=== PATIENT | male | born 1965 | race Caucasian/White ===

== ENCOUNTER → 2017-09-11 | Outpatient (CLI) | payer BC ==
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
== END | disposition home or self-care (01) ==
LOC: RADMRIMAIN 19:03
PROVIDERS: ATTEND Physical Medicine & Rehabilitation
DX: M48.02 Spinal stenosis, cervical region (principal); M50.221 Other cervical disc displacement at C4-C5 level; M50.31 Other cervical disc degeneration, high cervical region; G95.20 Unspecified cord compression; M46.82 Other specified inflammatory spondylopathies, cervical region
CPT/HCPCS: 72141

== ENCOUNTER → 2018-07-27 | Outpatient (CLI) | payer BC ==
--- NOTE | 2018-07-27 16:04 | MR ---
EXAMINATION TYPE: MR lumbar spine wo/w con DATE OF EXAM: 07/27/2018 COMPARISON: 05/08/2013 HISTORY: Low back pain / Muscle spasm TECHNIQUE: Multiplanar, multisequence images of the lumbar spine were acquired utilizing 13 mL intravenous Gadav ist gadolinium contrast. FINDINGS: There is a new suspicious T1 hypointense approximately 1.8 cm lesion at the inferior labor operator ior margin of the L2 vertebral body that is minimally T2 hyperintense and demonstrates enhancement on postcontrast imaging. This was not present on the prior 2012. Peripherally T2 hyperintense and T1 hy perintense lesion of the inferior endplate of L5 is attributable to discogenic change. There is grade 1 anterolisthesis of L5 on S1, unchanged from the prior with disc uncovering. L1-L2: Normal disc appearance without desiccation. No herniation, protrusion or disc bulging. No ca nal stenosis is present. Foramina are patent bilaterally. L2-L3: There is a new broad-based disc bulge that is left eccentric creating moderate bilateral neura l foraminal narrowing without spinal canal stenosis. Mild facet arthropathy and ligamentum flavum buc kody are also seen at this level. L3-L4: There is a new broad-based disc bulge resulting in moderate right and mild to moderate left ne ural foraminal narrowing in combination with facet arthropathy and ligamentum flavum buckling. No sig nificant spinal canal stenosis. L4-L5: There is disc uncovering from the anterolisthesis, similar to the prior. There is also a broad -based disc bulge, facet arthropathy and ligamentum flavum buckling creating minimal bilateral neural foraminal narrowing. L5-S1: The previously seen subligamentous left paracentral disc herniation is less prominent than on the prior. Again the left S1 nerve root is asymmetrically enlarged in comparison to the right likely due to a perineural cyst as this is T2 hyperintense. There is a broad-based disc bulge, disc degenera tive change of the inferior endplate of L5, intervertebral disc space height loss, hemilaminectomy de fect on the left, and facet arthropathy resulting in mild bilateral neural foraminal narrowing withou t spinal canal stenosis. There is abnormal enhancement surrounding the left S1 nerve root. IMPRESSION: 1. Suspicious osseous lesion of the L2 vertebral body that is concerning for metastasis. Correlate wi th PSA. . Bone scan could also be utilized for further evaluation or 2. Stable grade 1 anterolisthesis of L5 on S1, unchanged from 2013, likely on a degenerative basis. 3. The previously seen left paracentral subligamentous disc herniation at L5-S1 is less prominent delfina n on the prior. However there does appear to be a small degree of enhancing epidural fibrosis surroun ding the left S1 nerve root. 4. Progression of moderate degenerative disc disease in comparison to the prior as described above. IMPRESSIONS- 1. There appears to be a moderate to large disc herniation to the left paracentral canal on the left aspect of the thecal sac at the L5-S1 level. This may be a sequestered disc and has comp ression and displacement on the exiting left S1 nerve root. Correlate with patient's symptoms. 2. Mil d disc bulging L4-L5 with anterior thecal sac contact. Facet hypertrophy is also present at this leve l without stenosis the thecal sac compression.
== END | disposition home or self-care (01) ==
LOC: RADMRIMAIN 10:41
PROVIDERS: ATTEND Physical Medicine & Rehabilitation
DX: M51.26 Other intervertebral disc displacement, lumbar region (principal); M46.86 Other specified inflammatory spondylopathies, lumbar region; M48.02 Spinal stenosis, cervical region; M50.121 Cervical disc disorder at C4-C5 level with radiculopathy; M50.221 Other cervical disc displacement at C4-C5 level; M47.812 Spondylosis without myelopathy or radiculopathy, cervical region; M62.830 Muscle spasm of back; M70.61 Trochanteric bursitis, right hip; Z98.890 Other specified postprocedural states
CPT/HCPCS: 72158; A9585

== ENCOUNTER → 2018-08-03 | Outpatient (CLI) | payer BC ==
[2018-08-03 15:16] LABS: Basophils % (A) 1 %; Eosinophils # (A) 0.3 k/uL (0-0.7); Eosinophils % (A) 4 %; HGB 15.8 gm/dL (13.0-17.5); Lymphocytes # (A) 1.1 k/uL (1.0-4.8); Lymphocytes % (A) 13 %; MCH 29.3 pg (25.0-35.0); MCV 94.6 fL (80.0-100.0); Mean Platelet Volume 7.1; Monocytes # (A) 0.6 k/uL (0-1.0); Monocytes % (A) 7 %; Neutrophils % (A) 74 %; Platelet Count 232 k/uL (150-450); RBC 5.39 m/uL (4.30-5.90); WBC 8.1 k/uL (3.8-10.6)
[2018-08-03 18:51] LABS: Protein, Total 6.2 g/dL (6.2-8.2)
== END ==
LOC: LABWHC1 14:51
PROVIDERS: ATTEND Physical Medicine & Rehabilitation
DX: M54.2 Cervicalgia (principal); M48.02 Spinal stenosis, cervical region; M50.121 Cervical disc disorder at C4-C5 level with radiculopathy; M50.122 Cervical disc disorder at C5-C6 level with radiculopathy; M50.222 Other cervical disc displacement at C5-C6 level; M50.221 Other cervical disc displacement at C4-C5 level; M47.22 Other spondylosis with radiculopathy, cervical region; M47.26 Other spondylosis with radiculopathy, lumbar region; M54.5 Low back pain; M62.830 Muscle spasm of back; M70.61 Trochanteric bursitis, right hip; Z68.37 Body mass index [BMI] 37.0-37.9, adult
CPT/HCPCS: 36415; 84153; 84165; 85025

== ENCOUNTER → 2018-08-08 | Outpatient (CLI) | payer BC ==
--- NOTE | 2018-08-08 15:19 | NM ---
EXAMINATION TYPE: NM bone scan whole body DATE OF EXAM: 08/08/2018 COMPARISON: 12/18/2012 HISTORY: Pain Delayed whole-body scanning was performed following the injection of 23.9 mCi Tc 99m MDP. Images acq uired 3 hours post injection. FINDINGS: Abnormal uptake involving the shoulders feet are most typical of arthritic changes or remote trauma. Abnormal uptake involving the lower lumbar spine and mid thoracic spine suggestive of degenerative di sc disease. Abnormal uptake involving the mandible suggestive of periodontal disease. Deformity involving the rig ht shoulder suggestive of history of previous fracture and surgery Abnormal uptake involving the mandible suggesting periodontal disease. Abnormal uptake involving the mid cervical spine likely degenerative but nonspecific. IMPRESSION- 1. Abnormal uptake involving the vertebral column most typical of degenerative change. 2. Abnormal uptake involving the shoulders typical arthritic change. Postsurgical change suggested in volving the right shoulder. .
== END | disposition home or self-care (01) ==
LOC: RADNMMAIN 10:04
PROVIDERS: ATTEND Physical Medicine & Rehabilitation
DX: R94.8 Abnormal results of function studies of other organs and systems (principal)
CPT/HCPCS: 78306; A9503

== ENCOUNTER → 2019-03-01 | Outpatient (CLI) | payer BC ==
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
== END | disposition home or self-care (01) ==
LOC: RADMRIMAIN 17:10
DX: M48.02 Spinal stenosis, cervical region (principal); M50.30 Other cervical disc degeneration, unspecified cervical region
CPT/HCPCS: 72141

== ENCOUNTER → 2019-07-05 | Outpatient (CLI) | payer BC ==
--- NOTE | 2019-07-06 01:48 | MR ---
EXAMINATION TYPE: MR angio head wo con DATE OF EXAM: 07/05/2019 COMPARISON: None HISTORY: Headache / Nausea TECHNIQUE: Time of flight images focusing on the [place] of [place] were performed without contrast. FINDINGS: There is arterial flow in the vertebrobasilar artery system. There is arterial flow in the intracranial internal carotid arteries bilaterally. There is wide patency of the posterior communicat ing arteries. There is arterial flow in the anterior middle and posterior cerebral arteries. I see no evidence of intracranial arterial stenosis. There is no mass effect. There is no evidence of aneurys m or neovascularity. IMPRESSION: Negative MR angiography exam of the brain.
--- NOTE | 2019-07-06 01:59 | MR ---
EXAMINATION TYPE: MR brain wo/w con DATE OF EXAM: 07/05/2019 COMPARISON: None HISTORY: Headache / Nausea TECHNIQUE: Multiplanar, multisequence images of the brain and brainstem is performed without and with IV contras t, utilizing 12.5 mL intravenous Gadavist . FINDINGS: Ventricles have fairly normal size. There is no mass effect nor midline shift. There is no evidence o f intracranial hemorrhage. There is no evidence of a cortical infarct. Diffusion images are normal. T here are a few tiny scattered foci of increased signal at the mcginnis-white matter junction of both cere bral hemispheres that measure up to 3 mm. Total number is less than 10. The brainstem is intact. Funmilayo us callosum appears normal. Sella turcica is normal. The contrast images show no pathologic enhanceme nt. There is normal enhancement of the venous sinuses. There is no evidence of cerebral edema. IMPRESSION: There are a few small scattered white matter high signal foci in both cerebral hemisphere s of uncertain significance. Otherwise negative exam. No evidence of cortical infarct.
== END ==
LOC: RADMRIMAIN 16:38
PROVIDERS: ATTEND Neurological Surgery
DX: R90.89 Other abnormal findings on diagnostic imaging of central nervous system (principal); R11.0 Nausea
CPT/HCPCS: 70544; 70553

== ENCOUNTER 2019-10-28 14:54 | Emergency (ER) | payer BC ==
[2019-10-28 15:02] VITALS: PULSE 66; RESP 18
[2019-10-28] MEDS ORDERED: SODIUM CHLORIDE 0.9% 500 ML 500 ML IV ONE (15:21)
[2019-10-28 15:44] LABS: Appearance,Urine Clear (Clear); Basophils % (A) 0 %; Bilirubin,Urine Negative (Negative); Blood,Urine Negative (Negative); Color,Urine Yellow; Eosinophils # (A) 0.1 k/uL (0-0.7); Eosinophils % (A) 2 %; Glucose,Urine (UA) Negative (Negative); HCT 38.9 % (39.0-53.0); HGB 12.9 gm/dL (13.0-17.5); Ketones,Urine Negative (Negative); Leukocyte Esterase,Urine Negative (Negative); Lymphocytes # (A) 1.1 k/uL (1.0-4.8); Lymphocytes % (A) 20 %; MCHC 33.1 g/dL (31.0-37.0); MCV 90.9 fL (80.0-100.0); Mean Platelet Volume 7.2; Monocytes # (A) 0.5 k/uL (0-1.0); Monocytes % (A) 9 %; Neutrophils # (A) 3.8 k/uL (1.3-7.7); Neutrophils % (A) 67 %; Nitrite,Urine Negative (Negative); Platelet Count 220 k/uL (150-450); Protein,Urine Trace (Negative); RBC 4.28 m/uL (4.30-5.90); RDW 12.2 % (11.5-15.5); Specific Gravity,Urine 1.035 (1.001-1.035); Urobilinogen,Urine <2.0 mg/dL (<2.0); WBC 5.6 k/uL (3.8-10.6)
[2019-10-28] MEDS ORDERED: HYDROmorphone 1 MG/ML 1 ML SYRINGE IVP STA ×2 (15:44→16:24)
[2019-10-28 15:52] LABS: INR 0.9 (<1.2); Partial Thromboplastin Time 25.2 sec (22.0-30.0); Prothrombin Time 9.3 sec (9.0-12.0)
[2019-10-28 15:54] LABS: Amphetamine Screen,Urine Not Detected (NotDetected); Barbiturate Screen,Urine Not Detected (NotDetected); Benzodiazepines Screen,Urine Detected (NotDetected); Cocaine Screen,Urine Not Detected (NotDetected); Methadone Screen, Urine Not Detected (NotDetected); Opiate Screen,Urine Detected (NotDetected); Oxycodone Screen, Urine Detected (NotDetected); Phencyclidine Screen,Urine Detected (NotDetected); Tricyclic Antidepressant,Urine Not Detected (NotDetected); Urn Cannabinoid Scrn Detected (NotDetected)
--- NOTE | 2019-10-28 15:54 | ED ---
General Adult HPI - General Chief complaint: Altered Mental Status Stated complaint: Fever/Confusion Time Seen by Provider: 10/28/19 15:11 Source: patient, RN notes reviewed, old records reviewed Mode of arrival: ambulatory Limitations: no limitations - History of Present Illness Initial comments: 54-year-old male presenting for evaluation of neck pain. Patient is 2 months postop anterior cervical fusion. He's had persistent pain postoperatively. He is on Percocet and Valium at home. He's presenting today with complaint of neck pain and low-grade fever. Patient has had fever for the past 3 days at home. He reports some swelling in the lower portion of his right neck. He denies cough or URI symptoms, no sore throat. Denies dyspnea. Denies abdominal pain nausea vomiting. Denies rash. Denies dysuria or hematuria. He did contact his primary care physician who recommended she present to the emergency department for evaluation. - Related Data Allergies Allergy/AdvReac Type Severity Reaction Status Date / Time aspirin Allergy Abdominal Verified 10/28/19 14:56 Pain cefaclor [From Ceclor] Allergy Dyspnea Verified 10/28/19 14:57 Review of Systems ROS Statement: Those systems with pertinent positive or pertinent negative responses have been documented in the HPI. ROS Other: All systems not noted in ROS Statement are negative. Past Medical History Additional Past Medical History / Comment(s): back pain History of Any Multi-Drug Resistant Organisms: None Reported Past Surgical History: Back Surgery, Joint Replacement, Orthopedic Surgery Additional Past Surgical History / Comment(s): cervical fusion. back x 3 . R wrist L toe, R shoulder Past Psychological History: No Psychological Hx Reported Smoking Status: Former smoker Past Alcohol Use History: None Reported Past Drug Use History: None Reported General Exam Limitations: no limitations General appearance: alert, in no apparent distress Head exam: Present: atraumatic, normocephalic Eye exam: Present: normal appearance, PERRL ENT exam: Present: normal exam, normal oropharynx Neck exam: Present: tenderness. Absent: meningismus (Patient has right anterior cervical incision which is clean dry and intact, no surrounding erythema. He has tenderness throughout the paraspinal muscles bilaterally.) Respiratory exam: Present: normal lung sounds bilaterally. Absent: respiratory distress, wheezes Cardiovascular Exam: Present: regular rate, normal rhythm GI/Abdominal exam: Present: soft. Absent: distended, tenderness, guarding, rebound Extremities exam: Present: normal inspection, normal capillary refill. Absent: calf tenderness Back exam: Present: normal inspection Neurological exam: Present: alert, oriented X3, CN II-XII intact. Absent: motor sensory deficit Psychiatric exam: Present: normal affect, normal mood Skin exam: Present: warm, dry, intact. Absent: cyanosis, diaphoretic Course Vital Signs 10/28/19 10/28/19 14:57 15:44 Temperature 98.1 F 98.1 F Pulse Rate 66 Respiratory 18 Rate Blood Pressure 137/79 EKG Findings - EKG Comments: EKG Findings:: EKG: Sinus bradycardia, rate 58, NV interval 166, QRS duration 9 4, QTC 410, no ST segment elevation. Medical Decision Making - Medical Decision Making 54 YO male presenting with worsening neck pain, reported fevers at home which was low-grade. He had initiated physical therapy within the past week and states that his pain had significantly increased over 2 sessions on and Monday. He also reported low-grade fevers at home with no other specific source of infection, no cough or URI symptoms, no abdominal pain nausea vomiting. No dysuria. No rash. He was encouraged by the staff at his spinal surgeons office as well as his primary care office to present to the emergency department for evaluation. There was some reported confusion over the past several days as well, which the patient attributes to lack of sleep secondary to pain. He is also on several pain medications including opiates and benzodiazepines. I suspect this confusion is related to medication effect, pain, lack of sleep. He is alert and oriented at the time my evaluation. CT was performed of the soft tissue neck which shows significant artifact secondary to fusion however there is no visualized hematoma or abscess, there is some mild soft tissue swelling in the prevertebral soft tissues. Trachea is midline. Patient is swallowing, talking without respiratory distress, no difficulty swallowing, no stridor. His soft tissue neck exam is unremarkable there is no induration, there is no swelling, trachea is midline. Workup in the emergency department reveals normal white blood cell count, no leukocytosis, hemoglobin is stable, electrolytes and blood glucose are within normal limits. Urinalysis negative for infection. Urine drug screen is positive for opiates, benzodiazepines, THC. I was able to discuss the case with the patient's orthopedic surgeon Dr. Layne, including patient's exam, findings, agrees with outpatient follow-up. I did discuss the possibility of Elizabeth virus with this patient and his spouse, although he has no associated symptoms, no URI symptoms, no cough no dyspnea, given history of fever I did recommend quarantine for 2 weeks. Patient will return with worsening or changing symptoms, follow-up with primary care physician and spinal surgeon. - Lab Data Result diagrams: 10/28/19 15:29 10/28/19 15:29 Lab Results 10/28/19 10/28/19 10/28/19 Range/Units 15:29 15:29 15:29 WBC 5.6 (3.8-10.6) k/uL RBC 4.28 L (4.30-5.90) m/uL Hgb 12.9 L (13.0-17.5) gm/dL Hct 38.9 L (39.0-53.0) % MCV 90.9 (80.0-100.0) fL MCH 30.0 (25.0-35.0) pg MCHC 33.1 (31.0-37.0) g/dL RDW 12.2 (11.5-15.5) % Plt Count 220 (150-450) k/uL Neutrophils % 67 % Lymphocytes % 20 % Monocytes % 9 % Eosinophils % 2 % Basophils % 0 % Neutrophils # 3.8 (1.3-7.7) k/uL Lymphocytes # 1.1 (1.0-4.8) k/uL Monocytes # 0.5 (0-1.0) k/uL Eosinophils # 0.1 (0-0.7) k/uL Basophils # 0.0 (0-0.2) k/uL PT 9.3 (9.0-12.0) sec INR 0.9 (<1.2) APTT 25.2 (22.0-30.0) sec Sodium (137-145) mmol/L Potassium (3.5-5.1) mmol/L Chloride (98-107) mmol/L Carbon Dioxide (22-30) mmol/L Anion Gap mmol/L BUN (9-20) mg/dL Creatinine (0.66-1.25) mg/dL Est GFR (CKD-EPI)AfAm (>60 ml/min/1.73 sqM) Est GFR (CKD-EPI)NonAf (>60 ml/min/1.73 sqM) Glucose (74-99) mg/dL Calcium (8.4-10.2) mg/dL Total Bilirubin (0.2-1.3) mg/dL AST (17-59) U/L ALT (4-49) U/L Alkaline Phosphatase (38-126) U/L Total Protein (6.3-8.2) g/dL Albumin (3.5-5.0) g/dL Urine Color Yellow Urine Appearance Clear (Clear) Urine pH 6.0 (5.0-8.0) Ur Specific [place] 1.035 (1.001-1.035) Urine Protein Trace H (Negative) Urine Glucose (UA) Negative (Negative) Urine Ketones Negative (Negative) Urine Blood Negative (Negative) Urine Nitrite Negative (Negative) Urine Bilirubin Negative (Negative) Urine Urobilinogen <2.0 (<2.0) mg/dL Ur Leukocyte Esterase Negative (Negative) Urine Opiates Screen Detected H (NotDetected) Ur Oxycodone Screen Detected H (NotDetected) Urine Methadone Screen Not Detected (NotDetected) Ur Propoxyphene Screen Not Detected (NotDetected) Ur Barbiturates Screen Not Detected (NotDetected) U Tricyclic Antidepress Not Detected (NotDetected) Ur Phencyclidine Scrn Detected H (NotDetected) Ur Amphetamines Screen Not Detected (NotDetected) U Methamphetamines Scrn Not Detected (NotDetected) U Benzodiazepines Scrn Detected H (NotDetected) Urine Cocaine Screen Not Detected (NotDetected) U Marijuana (THC) Screen Detected H (NotDetected) 10/28/19 Range/Units 15:29 WBC (3.8-10.6) k/uL RBC (4.30-5.90) m/uL Hgb (13.0-17.5) gm/dL Hct (39.0-53.0) % MCV (80.0-100.0) fL MCH (25.0-35.0) pg MCHC (31.0-37.0) g/dL RDW (11.5-15.5) % Plt Count (150-450) k/uL Neutrophils % % Lymphocytes % % Monocytes % % Eosinophils % % Basophils % % Neutrophils # (1.3-7.7) k/uL Lymphocytes # (1.0-4.8) k/uL Monocytes # (0-1.0) k/uL Eosinophils # (0-0.7) k/uL Basophils # (0-0.2) k/uL PT (9.0-12.0) sec INR (<1.2) APTT (22.0-30.0) sec Sodium 141 (137-145) mmol/L Potassium 3.9 (3.5-5.1) mmol/L Chloride 103 (98-107) mmol/L Carbon Dioxide 30 (22-30) mmol/L Anion Gap 8 mmol/L BUN 16 (9-20) mg/dL Creatinine 0.69 (0.66-1.25) mg/dL Est GFR (CKD-EPI)AfAm >90 (>60 ml/min/1.73 sqM) Est GFR (CKD-EPI)NonAf >90 (>60 ml/min/1.73 sqM) Glucose 114 H (74-99) mg/dL Calcium 8.8 (8.4-10.2) mg/dL Total Bilirubin 0.5 (0.2-1.3) mg/dL AST 26 (17-59) U/L ALT 26 (4-49) U/L Alkaline Phosphatase 79 (38-126) U/L Total Protein 6.1 L (6.3-8.2) g/dL Albumin 3.8 (3.5-5.0) g/dL Urine Color Urine Appearance (Clear) Urine pH (5.0-8.0) Ur Specific [place] (1.001-1.035) Urine Protein (Negative) Urine Glucose (UA) (Negative) Urine Ketones (Negative) Urine Blood (Negative) Urine Nitrite (Negative) Urine Bilirubin (Negative) Urine Urobilinogen (<2.0) mg/dL Ur Leukocyte Esterase (Negative) Urine Opiates Screen (NotDetected) Ur Oxycodone Screen (NotDetected) Urine Methadone Screen (NotDetected) Ur Propoxyphene Screen (NotDetected) Ur Barbiturates Screen (NotDetected) U Tricyclic Antidepress (NotDetected) Ur Phencyclidine Scrn (NotDetected) Ur Amphetamines Screen (NotDetected) U Methamphetamines Scrn (NotDetected) U Benzodiazepines Scrn (NotDetected) Urine Cocaine Screen (NotDetected) U Marijuana (THC) Screen (NotDetected) Disposition Clinical Impression: Cervical vertebral fusion, Fever Disposition: HOME SELF-CARE Condition: Good Instructions (If sedation given, give patient instructions): Fever in Adults (ED) Additional Instructions: Please follow up with Dr. Spicer and your spinal surgeon. Is patient prescribed a controlled substance at d/c from ED?: No Referrals: Lucho Spicer MD [Primary Care Provider] - 1-2 days Time of Disposition: 17:06
[2019-10-28 16:05] LABS: ALT 26 U/L (4-49); AST 26 U/L (17-59); African American GFR (CKD) >90 (>60 ml/min/1.73 sqM); Albumin 3.8 g/dL (3.5-5.0); Alkaline Phosphatase 79 U/L (38-126); Anion Gap 8 mmol/L; Blood Urea Nitrogen 16 mg/dL (9-20); Calcium 8.8 mg/dL (8.4-10.2); Carbon Dioxide 30 mmol/L (22-30); Chloride 103 mmol/L (98-107); Glucose 114 mg/dL (74-99); Non-African American GFR(CKD) >90 (>60 ml/min/1.73 sqM); Potassium 3.9 mmol/L (3.5-5.1); Sodium 141 mmol/L (137-145); Total Bilirubin 0.5 mg/dL (0.2-1.3); Total Protein 6.1 g/dL (6.3-8.2)
--- NOTE | 2019-10-28 16:21 | CT ---
EXAMINATION TYPE: CT brain wo con DATE OF EXAM: 10/28/2019 COMPARISON: MRI brain dated 07/05/2019 HISTORY: Fever and confusion. Altered mental status. CT DLP: 1169 mGycm. Automated Exposure Control for Dose Reduction was Utilized. TECHNIQUE: CT scan of the head is performed without contrast. FINDINGS: There is no acute intracranial hemorrhage, mass effect, or midline shift identified. Ther e are few scattered areas of white matter change seen on the prior MRI are not demonstrated well on C T. MRI has increased sensitivity for white matter change. The ventricles and sulci are within normal limits in size. The globes are intact and the visualized sinuses are clear. Cerebellar tonsils are i ncidentally noted to be low-lying without herniation, possibly congenital. IMPRESSION: No acute intracranial hemorrhage, mass effect, or midline shift is seen.
--- NOTE | 2019-10-28 16:22 | XR ---
EXAMINATION TYPE: XR chest 2V DATE OF EXAM: 10/28/2019 COMPARISON: NONE HISTORY: Fever, confusion, and altered mental status. TECHNIQUE: Frontal and lateral views of the chest are obtained. FINDINGS: There is no focal air space opacity, pleural effusion, or pneumothorax seen. Left basilar opacity is linear and platelike, likely scarring or atelectasis. There is a nodular density in the l ateral view that is subcentimeter in the retrocardiac airspace. The cardiac silhouette size is mildly enlarged. The osseous structures are intact with mild degenerative change of the thoracic spine. IMPRESSION: Linear left basilar airspace disease, likely atelectasis. Subcentimeter nodular density in the retrocardiac airspace can be evaluated with nonemergent follow-up chest CT.
[2019-10-28] MEDS ORDERED: DIAZEPAM 5 MG/ML 2 ML INJ IVP STA (16:24)
--- NOTE | 2019-10-28 16:30 | CT ---
EXAMINATION TYPE: CT soft tissue neck w con DATE OF EXAM: 10/28/2019 HISTORY: Fever and recent cervical fusion. COMPARISON: NONE CT DLP: 497.7 mGycm. Automated Exposure Control for Dose Reduction was Utilized. TECHNIQUE: CT scan of the neck is performed with IV Contrast, patient injected with 100ml mL of Isov ue 300, axial images are obtained, coronal and sagittal reformatted images are reviewed. FINDINGS: Airway: Airway is patent. Some density in the vallecula could relate to secretions. Parotid/submandibular glands: No gross abnormality seen. Symmetric and unremarkable. Carotid/Vascular Structures: Mild nonhemodynamically significant calcific atheromatous plaquing of candelario th the carotid bulbs and the left common carotid artery. Cervical portions of the internal carotid ar teries appear patent as do the vertebral arteries in the visualized portion. Vertebral arteries are o bscured at the level of the cervical fusion device secondary to extensive spray artifact. Osseous Structures: There is an anterior cervical fusion device spanning the C4-6 vertebral levels. G rade 1 anterolisthesis of C2 on C3 is likely due to hypertrophic facet change. There is straightening of the usual cervical lordosis that may relate to patient positioning. There is severe spray artifac t generated by the cervical fusion device that severely limits evaluation of the surrounding preverte bral soft tissues. There is prominence of the prevertebral soft tissues at C4 measuring 1.8 cm in thi ckness. Multilevel uncovertebral hypertrophy and facet arthropathy are seen. Overall mild degenerativ e disc disease of the cervical spine. Other: The thyroid gland is enlarged with substernal extent. Mild centrilobular emphysematous change of the lung apices. IMPRESSION: Examination is severely limited at the postsurgical site of C4-C6 due to extensive spray artifact from the anterior cervical fusion device. There is prominence of the prevertebral soft tissu es although exam is nondiagnostic for adjacent abscess given the poor visualization. MRI with metalli c suppression sequences may be beneficial if there is further concern for postoperative abscess.
[2019-10-28 17:31] VITALS: BP 139/85; TEMP 97.9
== END 2019-10-28 17:32 | disposition home or self-care (01) ==
LOC: EC 14:54
DX: M43.22 Fusion of spine, cervical region (principal); R50.9 Fever, unspecified; Z88.1 Allergy status to other antibiotic agents; Z88.6 Allergy status to analgesic agent; Z87.891 Personal history of nicotine dependence; Z98.1 Arthrodesis status
CPT/HCPCS: 36415; 93005; 80053; 85025; 85610; 85730; 81003; 80306; 71046; 70491; 70450; 99285; 96374; 96375; 96376; 96361 ×2; J3360; J1170; Q9967

== ENCOUNTER → 2019-10-30 | Outpatient (CLI) | payer BC | END | disposition home or self-care (01) | LOC: RADMRIMAIN 15:29 | PROVIDERS: ATTEND Neurological Surgery | DX: Z53.9 Procedure and treatment not carried out, unspecified reason (principal) ==

== ENCOUNTER → 2019-11-19 | Outpatient (CLI) | payer BC ==
--- NOTE | 2019-11-19 15:07 | CT ---
EXAMINATION TYPE: CT cervical spine wo con DATE OF EXAM: 11/19/2019 COMPARISON: CT soft tissue neck 10/28/2019 HISTORY: 54-year-old male neck pain radiating into both arms following cervical fusion TECHNIQUE: Contiguous axial scanning of the cervical spine without IV contrast. Coronal and sagittal reconstructions performed. CT DLP: 679.6 mGycm Automated exposure control for dose reduction was used. FINDINGS: Bulky thyroid enlargement measuring up to 7.1 cm craniocaudal. Postsurgical changes of C4-C7 ACDF. Result the normal cervical lordosis but otherwise with preserved alignment. Assessment of the spinal canal at the surgical levels is limited due to streak artifact. At C2-C3, advanced hypertrophic facet arthropathy on the right causing severe right neural foraminal stenosis. At C3-C4, hypertrophic facet arthropathy on the right causing moderate right neural foraminal stenosi s. At C4-C5, hypertrophic facet and uncovertebral joint arthropathy changes result in moderate right johan ral foraminal stenosis. At C5-C6, residual uncovertebral joint and facet arthropathy causing mild right neural foraminal sten osis. At C6-C7, uncovertebral joint arthropathy on both sides with mild bilateral neuroforaminal narrowing. At C7-T1, no significant neural foraminal stenosis. IMPRESSION: 1. STATUS POST C4-C7 ACDF. REVERSAL OF THE NORMAL CERVICAL LORDOSIS SIMILAR TO 10/28/2019. 2. HYPERTROPHIC FACET AND UNCOVERTEBRAL JOINT ARTHROPATHY, PARTICULARLY ON THE RIGHT. THIS RESULTS IN SEVERE RIGHT NEUROFORAMINAL STENOSIS AT C2-C3, MODERATE AT C3-C4 AND C4-C5, AND MILD AT ADDITIONAL L EVELS. 3. Bulky enlarged thyroid gland could represent goiter or diffuse thyroiditis. Clinically correlate.
== END | disposition home or self-care (01) ==
LOC: RADCTMAIN 14:32
PROVIDERS: ATTEND Neurological Surgery
DX: M48.02 Spinal stenosis, cervical region (principal); M54.12 Radiculopathy, cervical region; E04.9 Nontoxic goiter, unspecified; Z98.1 Arthrodesis status
CPT/HCPCS: 72125

== ENCOUNTER → 2020-06-12 | Outpatient (CLI) | payer BC ==
--- NOTE | 2020-06-14 22:26 | CT ---
EXAMINATION TYPE: CT chest wo/w con DATE OF EXAM: 06/12/2020 COMPARISON: HISTORY: Solitary pulmonary nodule CT DLP: 1487.5 mGycm Automated exposure control for dose reduction was used. CONTRAST: CT scan of the chest is performed without and with IV Contrast, patient injected with 100 mL of Isovu e 300. FINDINGS: LUNGS: Lungs are grossly clear. 5 mm pleural-based nodule of the left lower lobe medially (7:28). Sca ttered areas of mild pleural nodularity and atelectasis. No pleural effusion. No pneumothorax. The tr acheobronchial tree is patent. MEDIASTINUM/SOFT TISSUES: No axillary, hilar, or mediastinal lymphadenopathy greater than 1 cm. Cardi ac size is normal. No pericardial effusion. No thoracic aortic aneurysm. UPPER ABDOMEN: No adrenal nodule. OSSEOUS: Degenerative changes of the spine. IMPRESSION: 5 mm pleural-based nodule of the left lower lobe. Per Fleischner 2017 guidelines, if the patient is l ow risk no additional follow-up is needed. If the patient is high risk optional noncontrast CT can be performed in 12 months.
== END | disposition home or self-care (01) ==
LOC: RADCTMAIN 08:20
PROVIDERS: ATTEND Family Medicine
DX: R91.1 Solitary pulmonary nodule (principal)
CPT/HCPCS: 71270; Q9967

== ENCOUNTER → 2020-11-03 | Outpatient (CLI) | payer BC ==
--- NOTE | 2020-11-04 06:11 | MR ---
EXAMINATION TYPE: MR cervical spine wo con DATE OF EXAM: 11/03/2020 COMPARISON: 03/01/2019 HISTORY: Neck pain, RT arm pain, RT arm & hand weakness for 3 years. Multiplanar multiecho imaging of the cervical spine was performed without contrast. FINDINGS: There is metal artifact from multilevel anterior fusion surgery from C4 to C6. There is C6-7 moderate narrowing of the disc space. There is straightening of the cervical spine. There is some spurring of the endplates posteriorly with mild encroachment on the spinal canal. There is no evidence of edema of the spinal cord. Spinal canal is narrowed to 8.5 mm at the narrowest point which is C4 level. The brainstem is intact. There is no evidence of a fracture. I see no bony destructive process. There is no cervical paraspinal mass. IMPRESSION: Multilevel fusion surgery. There is improvement in the cervical spinal stenosis at C4-5 and C5-6 comp ared to preoperative exam of 03/01/2019. Spinal canal appears adequate on today's exam.
== END | disposition home or self-care (01) ==
LOC: RADMRIMAIN 16:15
PROVIDERS: ATTEND Neurological Surgery
DX: M48.02 Spinal stenosis, cervical region (principal); M54.12 Radiculopathy, cervical region; Z98.1 Arthrodesis status
CPT/HCPCS: 72141

== ENCOUNTER → 2020-12-14 | Outpatient (CLI) | payer BC ==
--- NOTE | 2020-12-14 19:09 | MR ---
MR brain without contrast HISTORY: Headaches, R 51 Multiplanar multisequence imaging obtained through the brain Correlation to CT brain 10/28/2019 Corpus callosum, pituitary, cervical medullary junction, cerebellopontine angles are unremarkable. Th ere is no hemorrhage or hydrocephalus. There are normal vascular flow voids. There is no restricted d iffusion. There is some scattered hyperintensities within the mimi, periventricular, subcortical whit e matter on inversion recovery T2-weighted sequences, approximately, partially 5-10 lesions are prese nt. The largest is in the right frontal white matter, axial image 21 measures partially 6 mm. The orb its show symmetric appearance. Mild inflammatory change present in the ethmoid air cells. IMPRESSION: Nonspecific white matter demyelination. Differential includes migraine headaches, hyperte nsion, Lyme disease, vasculitis and chronic small vessel ischemic changes, multiple sclerosis felt to be less likely.
== END | disposition home or self-care (01) ==
LOC: RADMRIMAIN 17:10
PROVIDERS: ATTEND Neurological Surgery
DX: G43.909 Migraine, unspecified, not intractable, without status migrainosus (principal); G37.8 Other specified demyelinating diseases of central nervous system
CPT/HCPCS: 70551

== ENCOUNTER 2021-07-18 16:47 | Emergency (ER) | payer BC ==
[2021-07-18 17:24] VITALS: TEMP 97.7
[2021-07-18] MEDS ORDERED: SODIUM CHLORIDE 0.9% 50 ML IVPB ONE (20:00)
[2021-07-18] MEDS ORDERED: BAMLANIVIMAB (EUA) 700 MG, ETESEVIMAB (EUA) 1,400 MG in SODIUM CHLORIDE 0.9% 50 ML IVPB ONE (20:00)
[2021-07-18] MEDS ORDERED: ACETAMINOPHEN TAB 325 MG TAB PO STA (20:12)
--- NOTE | 2021-07-18 20:13 | ED ---
General Adult HPI - General Chief complaint: Headache Stated complaint: Covid +, wants BAM Time Seen by Provider: 07/18/21 19:03 Source: patient, RN notes reviewed Mode of arrival: ambulatory Limitations: no limitations - History of Present Illness Initial comments: Patient is a 56-year-old male that presents to the emergency department complaining of Covid-positive today. He notes symptoms times one. He notes he was sent here by his primary care to get monoclonal antibodies. Patient was otherwise well-appearing in no apparent distress. He denied chest pain shortness of breath nausea vomiting diarrhea constipation fever fatigue chills. - Related Data Allergies Allergy/AdvReac Type Severity Reaction Status Date / Time aspirin Allergy Abdominal Verified 07/18/21 17:24 Pain cefaclor [From Ceclor] Allergy Dyspnea Verified 07/18/21 17:24 Review of Systems ROS Statement: Those systems with pertinent positive or pertinent negative responses have been documented in the HPI. ROS Other: All systems not noted in ROS Statement are negative. Past Medical History Additional Past Medical History / Comment(s): back pain History of Any Multi-Drug Resistant Organisms: None Reported Past Surgical History: Back Surgery, Joint Replacement, Orthopedic Surgery Additional Past Surgical History / Comment(s): cervical fusion. back x 3 . R wrist L toe, R shoulder Past Psychological History: No Psychological Hx Reported Smoking Status: Current every day smoker Past Alcohol Use History: None Reported Past Drug Use History: None Reported General Exam Limitations: no limitations General appearance: alert, in no apparent distress, obese Head exam: Present: atraumatic, normocephalic, normal inspection Eye exam: Present: normal appearance, PERRL, EOMI. Absent: scleral icterus, conjunctival injection, periorbital swelling ENT exam: Present: normal exam, mucous membranes moist Neck exam: Present: normal inspection. Absent: tenderness, meningismus, lymphadenopathy Respiratory exam: Present: normal lung sounds bilaterally. Absent: respiratory distress, wheezes, rales, rhonchi, stridor Cardiovascular Exam: Present: regular rate, normal rhythm, normal heart sounds. Absent: systolic murmur, diastolic murmur, rubs, gallop, clicks Extremities exam: Present: normal inspection, full ROM, normal capillary refill. Absent: tenderness, pedal edema, joint swelling, calf tenderness Neurological exam: Present: alert, oriented X3 Psychiatric exam: Present: normal affect, normal mood Skin exam: Present: warm, dry, intact, normal color. Absent: rash Course Vital Signs 07/18/21 17:19 Temperature 97.7 F Pulse Rate 86 Respiratory 18 Rate Blood Pressure 128/89 O2 Sat by Pulse 96 Oximetry Medical Decision Making - Medical Decision Making 56-year-old male complaining of Covid-positive wanting monoclonal antibodies. Patient did bring his printed report with him a will be scant was filed. Patient does meet criteria for monoclonal antibodies and wishes to undergo inf usion. Patient is agreeable discharge home after. Case discussed with Dr. Alex, patient can discharge home after. Disposition Clinical Impression: COVID Disposition: HOME SELF-CARE Condition: Stable Instructions (If sedation given, give patient instructions): Coronavirus Disea se 2019 (COVID-19) Additional Instructions: Please return to the Emergency Department if symptoms worsen or any other concerns. Is patient prescribed a controlled substance at d/c from ED?: No Referrals: Lucho Spicer MD [Primary Care Provider] - 1-2 days Time of Disposition: 20:13
[2021-07-18 20:53] VITALS: BP 151/89; PULSE 57; RESP 16
== END 2021-07-18 21:09 | disposition home or self-care (01) ==
LOC: EC 16:47
DX: U07.1 COVID-19 (principal); F17.200 Nicotine dependence, unspecified, uncomplicated; Z88.6 Allergy status to analgesic agent; Z88.1 Allergy status to other antibiotic agents
CPT/HCPCS: 99283; J3490

== ENCOUNTER → 2022-07-01 | Outpatient (CLI) | payer BC ==
--- NOTE | 2022-07-02 04:09 | MR ---
EXAMINATION TYPE: MR cervical spine wo con DATE OF EXAM: 07/01/2022 COMPARISON: 11/03/2020 HISTORY: Headaches, right arm weakness, numbness, burning. Hx fusion 2019. Multiplanar multiecho imaging of the cervical spine performed without contrast. There is metal artifact from anterior fusion surgery from C4 to C7. There is mild straightening of th e vertebra. Cervical spinal cord has normal signal pattern. No edema. No evidence of any significant spinal stenosis. The posterior elements are intact. The brainstem is intact. Spinal canal appears mukesh quate. No cervical paraspinal mass. IMPRESSION: Multilevel fusion surgery with mild straightening. No spinal stenosis. No evidence of any significant cervical disc herniation. No adverse change compared to the old exam.
== END | disposition home or self-care (01) ==
LOC: RADMRIMAIN 17:27
PROVIDERS: ATTEND Family Medicine
DX: M43.22 Fusion of spine, cervical region (principal); M54.12 Radiculopathy, cervical region
CPT/HCPCS: 72141

== ENCOUNTER → 2023-10-24 | Outpatient (CLI) | payer BC ==
--- NOTE | 2023-10-24 10:52 | MR ---
EXAMINATION TYPE: MR cervical spine wo con DATE OF EXAM: 10/24/2023 COMPARISON: 07/01/2020 HISTORY: Headaches, Pain neck into Right arm/hand, Rt hand weakness and trembles TECHNIQUE: Multiplanar, multisequence images of the cervical spine were acquired without contrast. There is low lying cerebellar tonsil suggestive of Chiari I malformation. Postsurgical changes C4-5 and C5-6 with reversal of normal cervical lordosis C2-C3: There is a stable grade 1 anterolisthesis. There is advanced facet arthropathy on the right re sults in mild right-sided foraminal enlargement. Mild facet arthropathy on the left. No obvious disc herniation or canal stenosis. C3-C4: Mild degenerative disc disease with mild facet arthropathy greater on the right. There is fusi on of the facets C3-C4 on the right. There is posterior spondylosis with disc osteophyte complex. The re is compression of the thecal sac and mild encroachment upon the anterior margin of spinal cord. Co mpatible with canal stenosis. Mild bilateral foraminal C4-C5: Postsurgical changes with uncovertebral joint hypertrophy greater on the right. The facet arth ropathy. Severe right-sided foraminal approach. No obvious disc herniation or canal stenosis. C5-C6: Postsurgical changes with bilateral uncovertebral joint or mild facet arthropathy. Posterior s pondylosis results in mild impression on the thecal sac with no definite spinal cord contact. Neural mild bilateral foraminal. No discrete herniation C6-C7: Degenerative disc disease with posterior spondylosis mild disc bulging. No stenosis or herniat ion. C7-T1: There is posterior spondylosis and uncovertebral joint hypertrophy. There is facet arthropathy and disc bulging laterally to right with severe right-sided foraminal and moderate left foraminal en croachment. No abnormal signal in the visualized spinal cord. Low-lying cerebellar tonsils are suggestive of Jj ri I malformation. IMPRESSION: 1. Status post C4-C7 ACDF. Reversal of normal cervical lordosis similar to prior exams. 2. Significant right-sided foraminal encroachment C7-T1 secondary to lateral disc bulging and uncover tebral joint.. 3. Severe right-sided foraminal encroachment C4-C5. 4. Multilevel facet arthropathy and foraminal encroachment. There is mild anterior encroachment upon the spinal cord at C3-C4 secondary to a posterior disc osteophyte complex and reversal of normal cerv ical lordosis. Findings result in canal stenosis stable from prior exam. 5. Low-lying cerebellar tonsils.
== END | disposition home or self-care (01) ==
LOC: RADMRIMAIN 09:27
PROVIDERS: ATTEND Physical Medicine & Rehabilitation
DX: M47.812 Spondylosis without myelopathy or radiculopathy, cervical region (principal); M48.02 Spinal stenosis, cervical region; M50.20 Other cervical disc displacement, unspecified cervical region; M25.78 Osteophyte, vertebrae; M50.33 Other cervical disc degeneration, cervicothoracic region; R51.9 Headache, unspecified; Z98.890 Other specified postprocedural states
CPT/HCPCS: 72141

== ENCOUNTER → 2023-11-22 | Outpatient (CLI) | payer BC ==
--- NOTE | 2023-11-22 23:00 | CT ---
EXAMINATION TYPE: CT cervical spine wo con DATE OF EXAM: 11/22/2023 COMPARISON: MRI 10/24/2023 HISTORY: 58-year-old male M54.12, neck pain. hx of cervical fusion. TECHNIQUE: Contiguous axial scanning of the cervical spine without IV contrast. Coronal and sagittal reconstructions performed. CT DLP: 578 mGycm Automated exposure control for dose reduction was used. FINDINGS: No pericervical junction abnormality, predental space widening, or prevertebral soft tissue swelling. Mild to moderate degenerative change of the C1 dens articulation. There is reversal of the normal cervical lordosis with previous C4-C6 ACDF. There is bony ankylosis h owever which encompasses C3-C7 levels. ACDF metal artifact limits assessment of the spinal canal along the fused levels. MRI provides more a ccurate assessment of the spinal canal. Some posterior osteophytic ridging above the ACDF at C3-C4: Trace to mild narrowing of the spinal can al. Moderate degenerative disc disease with desiccated and mildly narrowed disc at C7-T1. Bulky thyroid gland, possible goiter. Correlate with thyroid function studies and ultrasound as indic ated. Hypertrophic facet arthropathy throughout. Hypertrophic bridging from C2 through C4 levels on the rig ht. At C2-C3, change resulting in moderate to severe right neuroforaminal stenosis. At C3-C4, change resulting in moderate right and mild left neural foraminal stenosis. At C4-C5, changes result in moderate to severe right neural foraminal stenosis. At C5-C6, and result in severe right and moderate left neuroforaminal stenosis. At C6-C7, changes result in moderate left and mild right foraminal stenosis. At C7-T1, there is moderate right and mild left neuroforaminal stenosis. IMPRESSION: 1. STATUS POST C4-C6 ACDF WITH INTERBODY ANKYLOSIS CREATING AN EFFECTIVE FUSION FROM C3 THROUGH C7 LE VELS. REVERSAL OF THE NORMAL CERVICAL LORDOSIS. 2. METAL ARTIFACT LIMITING ASSESSMENT OF THE SPINAL CANAL. AT LEAST MILD SPINAL CANAL STENOSIS AT C3- C4 FROM POSTERIOR ENDPLATE RIDGING. PATIENT'S RECENT MRI PROVIDES MORE ACCURATE ASSESSMENT OF THE SPI NAL CANAL. 3. HYPERTROPHIC FACET ARTHROPATHY CONTRIBUTING TO VARIABLE, SIGNIFICANT NEURAL FORAMINAL STENOSES OUTLINED ABOVE. 4. BULKY THYROID GLAND, POSSIBLE GOITER. CORRELATE WITH PATIENT'S THYROID FUNCTION STUDIES AND THYROI D ULTRASOUND.
== END | disposition home or self-care (01) ==
LOC: RADCTMAIN 13:44
PROVIDERS: ATTEND Orthopaedic Surgery
DX: M47.812 Spondylosis without myelopathy or radiculopathy, cervical region (principal); M99.71 Connective tissue and disc stenosis of intervertebral foramina of cervical region
CPT/HCPCS: 72125

== ENCOUNTER → 2024-02-26 | Outpatient (CLI) | payer BC ==
--- NOTE | 2024-02-26 23:15 | MR ---
EXAMINATION TYPE: MR lumbar spine wo con DATE OF EXAM: 02/26/2024 COMPARISON: MRI lumbar spine 2018 HISTORY: Low back pain into left side, Numbness left foot, Lt drop foot, Hx of back surgery 1990 TECHNIQUE: Multiplanar, multisequence imaging of the lumbar spine is performed without IV contrast. FINDINGS: Sagittal images of the lumbar spine show vertebral body height to appear satisfactory. Ther e is grade 1 anterolisthesis L4 on L5. Multilevel disc desiccation mid to lower lumbar spine most pro minent at L5-S1 level. The conus medullaris is normal in position and signal in the inferior T12 lev el. Heterogeneous bone uptake to endplate changes posteriorly at L2-L3 level and the anterior superio r L3 and L4 levels. Axial images show T12-L1 and L1-L2 levels to appear within normal limits. Axial images at L2-L3 level show mild broad disc bulge mildly effaces the anterior thecal sac along w ith mild facet arthropathy and ligamentum flavum hypertrophy. Bilateral neural foramina are patent. Axial images at L3-L4 level show mild to moderate broad disc bulge and mild facet arthropathy and lig amentum flavum hypertrophy bilaterally. There is effacement of the bilateral thecal sac. There is mil d to moderate right greater than left bilateral anterior inferior neural foraminal narrowing. Axial images at L4-L5 level with spondylolisthesis with moderate facet arthropathy and ligamentum fla vum hypertrophy. There is some effacement of the anterior and posterior lateral thecal sac. Bilateral neural foramina are patent. Axial images at L5-S1 level show Modic type II endplate changes. There is small right paracentral dis c protrusion. There is [id number] facet arthropathy. There is mild right and moderate left-side d neural foraminal narrowing noted. Paraspinal muscle bulk is maintained. IMPRESSION: Multilevel degenerative change in the lumbar spine as detailed above. L4-L5 spondylolisth esis is redemonstrated.
== END | disposition home or self-care (01) ==
LOC: RADMRIMAIN 20:45
PROVIDERS: ATTEND Orthopaedic Surgery
DX: M43.16 Spondylolisthesis, lumbar region (principal); M47.816 Spondylosis without myelopathy or radiculopathy, lumbar region; M51.26 Other intervertebral disc displacement, lumbar region; M99.63 Osseous and subluxation stenosis of intervertebral foramina of lumbar region; M12.88 Other specific arthropathies, not elsewhere classified, other specified site; M21.372 Foot drop, left foot; Z98.890 Other specified postprocedural states
CPT/HCPCS: 72148

== ENCOUNTER → 2025-02-25 | Outpatient (CLI) | payer BC ==
--- NOTE | 2025-02-26 09:01 | US ---
EXAMINATION TYPE: US thyroid st tissue head/neck DATE OF EXAM: 02/25/2025 COMPARISON: CT 2023 CLINICAL INDICATION: Male, 59 years old with history of E04.2 NONTOXIC MULTINODULAR GOITER; Follow up from previous CT scan. TECHNIQUE: Grayscale and color Doppler imaging of the thyroid gland. FINDINGS: GLAND SIZE: Right Lobe: 7.1 x 3.1 x 2.7 cm. Limited measurement* Overall Parenchyma: heterogeneous Left Lobe: 6.7 x 2.7 x 3.2 cm. Limited measurement* Overall Parenchyma: heterogeneous Isthmus Thickness: 0.7 cm NODULES RIGHT: # of nodules measured on right: 2 1. 1.2 X 1.1 x 1.0 cm, upper lateral, solid or almost completely solid, hypoechoic TR 4 nodule, whi ch is wider than tall, with smooth margins, with echogenic foci. Prior size: No prior 2. 1.1 X 1.2 x 0.6 cm, mid medial, solid or almost completely solid, hypoechoic TR 4 nodule, which is wider than tall, with smooth margins, without echogenic foci. Prior size: No prior LEFT: # of nodules measured on left: 2 1. 1.2 X 0.8 x 0.6 cm, upper lateral, solid or almost completely solid, hypoechoic nodule, which is wider than tall, with smooth margins, without echogenic foci. Prior size: No prior 2. 1.1 X 1.2 x 0.9 cm, upper mid, solid or almost completely solid, hypoechoic TR 4 nodule, which is wider than tall, with smooth margins, without echogenic foci. Prior size: No prior ISTHMUS: # of nodules measured in the isthmus: 0 Bilateral neck scanned, no evidence of lymphadenopathy. IMPRESSION: 1. Multinodular goiter. 2. There are a couple TR4 nodules on either side measuring up to 1.2 cm. TI-RADS level nodule reported: TR4: If nodule size is ? 1.5 cm, FNA is recommended. If nodule size is ? 1.0 cm, follow-up imaging at 1, 2, 3, and 5 years is recommended. [facility], , 02/26/2025 8:58 AM
== END | disposition home or self-care (01) ==
LOC: RADUSWWP 15:39
PROVIDERS: ATTEND Family Medicine
DX: E04.2 Nontoxic multinodular goiter (principal)
CPT/HCPCS: 76536